=== PATIENT | female | born 1940 | race Caucasian/White ===

== ENCOUNTER → 2020-03-09 | Outpatient (CLI) | payer MEDICARE | END | disposition home or self-care (01) | LOC: RAD 09:45 | PROVIDERS: ATTEND Chiropractor | DX: M47.817 Spondylosis without myelopathy or radiculopathy, lumbosacral region (principal); M85.88 Other specified disorders of bone density and structure, other site; M16.7 Other unilateral secondary osteoarthritis of hip; M25.751 Osteophyte, right hip; M43.17 Spondylolisthesis, lumbosacral region ==

== ENCOUNTER → 2020-06-25 | Outpatient (CLI) | payer MEDICARE | END | disposition home or self-care (01) | LOC: COVID19 11:21 | PROVIDERS: ATTEND Student in an Organized Health Care Education/Training Program | DX: Z20.822 Contact with and (suspected) exposure to COVID-19 (principal) ==

== ENCOUNTER → 2021-01-11 | Outpatient (CLI) | payer MEDICARE | END | disposition home or self-care (01) | LOC: RAD 12:12 | PROVIDERS: ATTEND Chiropractor | DX: M51.36 Other intervertebral disc degeneration, lumbar region (principal); M47.816 Spondylosis without myelopathy or radiculopathy, lumbar region; M48.061 Spinal stenosis, lumbar region without neurogenic claudication ==

== ENCOUNTER 2022-07-11 14:06 | Inpatient (IN) | payer MEDICARE ==
[~2022-07-11] VITALS: Ht 154.9 cm; Wt 68.2 kg
[2022-07-11 14:09] VITALS: BP 141/103
[2022-07-11 14:57] LABS: HEMATOCRIT 35.1 % (37.0-47.0); MEAN CELL VOLUME 81.8 fl (81.0-99.0); MEAN CORPUSCULAR HGB 24.9 pg (27.0-31.0); MEAN CORPUSCULAR HGB CONC 30.5 g/dl (33.0-37.0); MEAN PLATELET VOLUME 8.6 fl (9.6-12.3); NUCLEATED RED BLOOD CELL 0.1 % (0.0-0.0); PLATELET COUNT AUTOMATED 331 10*3/uL (130-400); RED BLOOD COUNT 4.29 10*6/uL (4.10-5.10); RED CELL DISTRI WIDTH 15.3 % (0-14.5); WHITE BLOOD COUNT 31.9 10*3/uL (4.8-10.8)
[2022-07-11 15:04] LABS: MANUAL DIFF REFLEX YES
[2022-07-11 15:09] LABS: ACT PARTIAL THROMBO TIME 25.8 SECONDS (20.0-32.1); INTERNATIONAL NORM RATIO 1.1 (2.0-3.5)
[2022-07-11 15:12] LABS: POTASSIUM 4.8 mmol/L (3.4-5.1)
[2022-07-11 15:44] LABS: BILIRUBIN Negative (Negative); BLOOD 2+ (Negative); CLARITY Turbid (Clear); COLOR Dark Yellow (Yellow); GLUCOSE Negative (Negative); KETONE Trace (Negative); LEUKO ESTERASE 3+ (Negative); NITRITE Negative (Negative); PH 5.5 (4.5-8.0)
[2022-07-11 15:54] LABS: TOTAL CELLS COUNTED 100 #CELLS
[2022-07-11 15:55] LABS: PLATELET SUFFICIENCY NORMAL (NORMAL); TOXIC GRANULATION SLIGHT
[2022-07-11 15:56] VITALS: BP 134/93
[2022-07-11 15:56] LABS: POLYCHROMASIA SLIGHT
[2022-07-11 15:57] LABS: BURR CELLS FEW
[2022-07-11 15:59] LABS: BACTERIA 2+; MUCOUS 1+; RBC 21-30 rbc/hpf (0-2); WBC TNTC wbc/hpf (0-5)
[2022-07-11 17:18] VITALS: BP 140/87
[2022-07-11] MEDS ORDERED: REMERON15 M2 PO (17:47)
[2022-07-11] MEDS ORDERED: OXYCODONE HCL5 MG PO (17:48)
[2022-07-11] MEDS ORDERED: TYLENOL325 M2 PO (17:48)
[2022-07-11] MEDS ORDERED: VALIUM2 MG PO (17:50)
[2022-07-11] MEDS ORDERED: LIDODERM1 EACH T (17:52)
[2022-07-11] MEDS ORDERED: IBU800 MG PO (17:53)
[2022-07-11] MEDS ORDERED: PROMETHAZINE25 MG R (17:54)
[2022-07-11] MEDS ORDERED: LOPERAMIDE HCL2 MG PO (17:55)
[2022-07-11] MEDS ORDERED: ONDANSETRON ODT8 MG PO (17:56)
[2022-07-11] MEDS ORDERED: MELATONIN5 M1 SL (17:57)
[2022-07-11] MEDS ORDERED: PROTONIX40 MG PO (17:57)
[2022-07-11] MEDS ORDERED: ACIDOPHILUS1 EAC5 PO (17:59)
[2022-07-11 18:00] VITALS: BP 102/63
[2022-07-11] MEDS ORDERED: DEXAMETHASONE2 MG PO (18:00)
[2022-07-11] MEDS ORDERED: CLARITIN10 MG PO (18:00)
[2022-07-11] MEDS ORDERED: ZANTAC-360 (FAM20 MG PO (18:01)
[2022-07-11] MEDS ORDERED: MELATONIN5 M6 PO (18:38)
[2022-07-11] MEDS ORDERED: ACIDOPHILUS-PE1 EAC3 PO (18:39)
[2022-07-12] VITALS: BP 150/79
[2022-07-12 06:20] LABS: MEAN CELL VOLUME 81.9 fl (81.0-99.0); MEAN CORPUSCULAR HGB 25.3 pg (27.0-31.0); MEAN CORPUSCULAR HGB CONC 30.9 g/dl (33.0-37.0); MEAN PLATELET VOLUME 9.2 fl (9.6-12.3); PLATELET COUNT AUTOMATED 316 10*3/uL (130-400); RED BLOOD COUNT 4.03 10*6/uL (4.10-5.10); RED CELL DISTRI WIDTH 15.5 % (0-14.5)
[2022-07-12 06:22] LABS: MANUAL DIFF REFLEX YES
[2022-07-12 06:34] LABS: ALKALINE PHOSPHATASE 193 U/L (46-116); BUN 34 mg/dl (9-23); CHLORIDE 101 mmol/L (98-107); POTASSIUM 4.1 mmol/L (3.4-5.1); SGPT/ALT 20 U/L (10-49); TOTAL PROTEIN 5.7 gm/dL (6.0-8.0)
[2022-07-12 06:49] LABS: BURR CELLS FEW; PLATELET SUFFICIENCY NORMAL (NORMAL); POLYCHROMASIA SLIGHT; TOTAL CELLS COUNTED 100 #CELLS; TOXIC GRANULATION SLIGHT
[2022-07-12 06:50] LABS: OVALOCYTES FEW; TARGET CELLS FEW
[2022-07-12 08:00] VITALS: BP 140/70
[2022-07-12 12:00] VITALS: BP 119/66
[2022-07-12 16:00] VITALS: BP 130/74
[2022-07-12 20:00] VITALS: BP 153/78
[2022-07-13] VITALS: BP 154/77
[2022-07-13 05:30] LABS: BUN 42 mg/dl (9-23); CHLORIDE 102 mmol/L (98-107); POTASSIUM 4.2 mmol/L (3.4-5.1)
[2022-07-13 06:27] LABS: HEMATOCRIT 29.1 % (37.0-47.0); MANUAL DIFF REFLEX YES; MEAN CELL VOLUME 81.5 fl (81.0-99.0); MEAN CORPUSCULAR HGB 25.2 pg (27.0-31.0); MEAN CORPUSCULAR HGB CONC 30.9 g/dl (33.0-37.0); MEAN PLATELET VOLUME 9.3 fl (9.6-12.3); PLATELET COUNT AUTOMATED 342 10*3/uL (130-400); RED BLOOD COUNT 3.57 10*6/uL (4.10-5.10); RED CELL DISTRI WIDTH 15.6 % (0-14.5); WHITE BLOOD COUNT 18.3 10*3/uL (4.8-10.8)
[2022-07-13 07:39] LABS: PLATELET SUFFICIENCY NORMAL (NORMAL); TOTAL CELLS COUNTED 100 #CELLS
[2022-07-13 07:40] LABS: BURR CELLS MODERATE
[2022-07-13 08:00] VITALS: BP 160/80
[2022-07-13 11:54] VITALS: BP 145/74
[2022-07-13 16:00] VITALS: BP 182/102
[2022-07-13 18:10] VITALS: BP 154/90
[2022-07-13 20:00] VITALS: BP 146/89
[2022-07-14] VITALS: BP 171/86
[2022-07-14 01:00] VITALS: BP 164/80
[2022-07-14 08:00] VITALS: BP 125/88
[2022-07-14 11:35] LABS: HEMATOCRIT 29.9 % (37.0-47.0); MEAN CORPUSCULAR HGB 24.7 pg (27.0-31.0); MEAN CORPUSCULAR HGB CONC 30.4 g/dl (33.0-37.0); MEAN PLATELET VOLUME 9.4 fl (9.6-12.3); NUCLEATED RED BLOOD CELL 0.1 % (0.0-0.0); PLATELET COUNT AUTOMATED 357 10*3/uL (130-400); RED BLOOD COUNT 3.69 10*6/uL (4.10-5.10); RED CELL DISTRI WIDTH 15.9 % (0-14.5); WHITE BLOOD COUNT 18.2 10*3/uL (4.8-10.8)
[2022-07-14 11:36] LABS: MANUAL DIFF REFLEX YES
[2022-07-14 12:00] VITALS: BP 155/78
[2022-07-14 12:07] LABS: PLATELET SUFFICIENCY NORMAL (NORMAL); TOTAL CELLS COUNTED 100 #CELLS; TOXIC GRANULATION MODERATE
[2022-07-14 12:08] LABS: ACANTHOCYTES FEW; BURR CELLS MODERATE; POLYCHROMASIA SLIGHT
[2022-07-14 12:09] LABS: OVALOCYTES FEW; SCHISTOCYTES FEW
[2022-07-14 13:13] LABS: BUN 38 mg/dl (9-23); CHLORIDE 104 mmol/L (98-107); POTASSIUM 3.8 mmol/L (3.4-5.1)
[2022-07-14 16:00] VITALS: BP 154/87
[2022-07-14 20:00] VITALS: BP 155/85
[2022-07-15] VITALS: BP 154/85
[2022-07-15 07:01] LABS: HEMATOCRIT 31.3 % (37.0-47.0); MEAN CELL VOLUME 80.7 fl (81.0-99.0); MEAN CORPUSCULAR HGB 25.3 pg (27.0-31.0); MEAN CORPUSCULAR HGB CONC 31.3 g/dl (33.0-37.0); PLATELET COUNT AUTOMATED 353 10*3/uL (130-400); RED BLOOD COUNT 3.88 10*6/uL (4.10-5.10); RED CELL DISTRI WIDTH 16.3 % (0-14.5)
[2022-07-15 07:13] LABS: MANUAL DIFF REFLEX YES
[2022-07-15 07:30] LABS: MICROCYTOSIS SLIGHT; TOTAL CELLS COUNTED 100 #CELLS; TOXIC GRANULATION SLIGHT
[2022-07-15 07:31] LABS: BURR CELLS FEW; PLATELET SUFFICIENCY NORMAL (NORMAL); POLYCHROMASIA SLIGHT; SCHISTOCYTES FEW
[2022-07-15 08:00] VITALS: BP 154/89
[2022-07-15 09:26] LABS: BUN 39 mg/dl (9-23); CHLORIDE 104 mmol/L (98-107); POTASSIUM 4.1 mmol/L (3.4-5.1)
[2022-07-15 12:00] VITALS: BP 158/93
[2022-07-15 16:00] VITALS: BP 140/93
[2022-07-15 20:00] VITALS: BP 170/103
[2022-07-16] VITALS: BP 150/84
[2022-07-16 06:27] LABS: BUN 36 mg/dl (9-23); CHLORIDE 106 mmol/L (98-107); POTASSIUM 4.1 mmol/L (3.4-5.1)
[2022-07-16 06:42] LABS: HEMATOCRIT 32.5 % (37.0-47.0); MEAN CELL VOLUME 80.4 fl (81.0-99.0); MEAN CORPUSCULAR HGB 24.5 pg (27.0-31.0); MEAN CORPUSCULAR HGB CONC 30.5 g/dl (33.0-37.0); MEAN PLATELET VOLUME 9.4 fl (9.6-12.3); PLATELET COUNT AUTOMATED 355 10*3/uL (130-400); RED BLOOD COUNT 4.04 10*6/uL (4.10-5.10); RED CELL DISTRI WIDTH 16.3 % (0-14.5); WHITE BLOOD COUNT 17.8 10*3/uL (4.8-10.8)
[2022-07-16 07:12] LABS: MANUAL DIFF REFLEX YES
[2022-07-16 07:57] LABS: POLYCHROMASIA SLIGHT; TARGET CELLS FEW; TOTAL CELLS COUNTED 100 #CELLS
[2022-07-16 07:58] LABS: BURR CELLS FEW; MICROCYTOSIS SLIGHT; PLATELET SUFFICIENCY NORMAL (NORMAL); ROULEAUX SLIGHT; TOXIC GRANULATION SLIGHT
[2022-07-16 08:00] VITALS: BP 152/98
[2022-07-16 12:00] VITALS: BP 127/76
[2022-07-16 16:00] VITALS: BP 156/84
[2022-07-16 20:00] VITALS: BP 142/92
[2022-07-17] VITALS (8 sets, daily range): BP systolic 103–145; BP diastolic 63–84
[2022-07-17 06:28] LABS: ALKALINE PHOSPHATASE 154 U/L (46-116); BUN 32 mg/dl (9-23); CHLORIDE 107 mmol/L (98-107); POTASSIUM 4.4 mmol/L (3.4-5.1); SGPT/ALT 15 U/L (10-49); TOTAL PROTEIN 5.3 gm/dL (6.0-8.0)
[2022-07-17 06:33] LABS: HEMATOCRIT 31.7 % (37.0-47.0); MEAN CELL VOLUME 77.7 fl (81.0-99.0); MEAN CORPUSCULAR HGB CONC 32.2 g/dl (33.0-37.0); MEAN PLATELET VOLUME 9.6 fl (9.6-12.3); PLATELET COUNT AUTOMATED 330 10*3/uL (130-400); RED BLOOD COUNT 4.08 10*6/uL (4.10-5.10); RED CELL DISTRI WIDTH 16.3 % (0-14.5); WHITE BLOOD COUNT 20.9 10*3/uL (4.8-10.8)
[2022-07-17 06:56] LABS: MANUAL DIFF REFLEX YES
[2022-07-17 07:58] LABS: BURR CELLS FEW; MICROCYTOSIS SLIGHT; OVALOCYTES FEW; PLATELET SUFFICIENCY NORMAL (NORMAL); POLYCHROMASIA SLIGHT; TARGET CELLS FEW; TOTAL CELLS COUNTED 100 #CELLS; TOXIC GRANULATION SLIGHT
[2022-07-18 06:51] LABS: RETICULOCYTE % 1.04 % (0.50-2.50)
[2022-07-18 06:56] LABS: HEMATOCRIT 31.5 % (37.0-47.0); MEAN CORPUSCULAR HGB 25.3 pg (27.0-31.0); MEAN CORPUSCULAR HGB CONC 31.1 g/dl (33.0-37.0); MEAN PLATELET VOLUME 9.4 fl (9.6-12.3); PLATELET COUNT AUTOMATED 274 10*3/uL (130-400); RED BLOOD COUNT 3.88 10*6/uL (4.10-5.10); RED CELL DISTRI WIDTH 16.6 % (0-14.5); WHITE BLOOD COUNT 18.4 10*3/uL (4.8-10.8)
[2022-07-18 06:57] LABS: MANUAL DIFF REFLEX YES
[2022-07-18 06:58] LABS: MEAN CELL VOLUME 81.2 fl (81.0-99.0)
[2022-07-18 07:24] LABS: BURR CELLS FEW; OVALOCYTES FEW; PLATELET SUFFICIENCY NORMAL (NORMAL); POLYCHROMASIA SLIGHT; TARGET CELLS FEW; TOTAL CELLS COUNTED 100 #CELLS; TOXIC GRANULATION SLIGHT
[2022-07-18 07:25] LABS: MICROCYTOSIS SLIGHT
[2022-07-18 08:00] VITALS: BP 145/84
[2022-07-18 08:20] LABS: ALKALINE PHOSPHATASE 148 U/L (46-116); BUN 37 mg/dl (9-23); CHLORIDE 108 mmol/L (98-107); SGPT/ALT 13 U/L (10-49); TOTAL PROTEIN 5.1 gm/dL (6.0-8.0)
[2022-07-18 12:00] VITALS: BP 111/69
[2022-07-18 16:00] VITALS: BP 132/86
[2022-07-18 20:00] VITALS: BP 125/72
[2022-07-19] VITALS: BP 140/65
[2022-07-19 06:03] LABS: ALKALINE PHOSPHATASE 143 U/L (46-116); BUN 33 mg/dl (9-23); CHLORIDE 105 mmol/L (98-107); HEMATOCRIT 30.9 % (37.0-47.0); MEAN CELL VOLUME 82.4 fl (81.0-99.0); MEAN CORPUSCULAR HGB 25.3 pg (27.0-31.0); MEAN CORPUSCULAR HGB CONC 30.7 g/dl (33.0-37.0); MEAN PLATELET VOLUME 9.9 fl (9.6-12.3); PLATELET COUNT AUTOMATED 241 10*3/uL (130-400); RED BLOOD COUNT 3.75 10*6/uL (4.10-5.10); RED CELL DISTRI WIDTH 16.7 % (0-14.5); SGPT/ALT 15 U/L (10-49); WHITE BLOOD COUNT 17.8 10*3/uL (4.8-10.8)
[2022-07-19 06:07] LABS: MANUAL DIFF REFLEX YES
[2022-07-19 06:35] LABS: PLATELET SUFFICIENCY NORMAL (NORMAL); TARGET CELLS FEW; TOTAL CELLS COUNTED 100 #CELLS
[2022-07-19 08:00] VITALS: BP 147/76
[2022-07-19 12:00] VITALS: BP 131/81
[2022-07-19] MEDS ORDERED: VANCO 1 GR1 GM/250 M IV (12:13)
[2022-07-19 16:00] VITALS: BP 109/58
== END 2022-07-19 18:43 | DRG 871 ==
LOC: ED 14:06 → EDHOLD 16:36 → 4E 16:36
PROVIDERS: Family Medicine; Internal Medicine; Registered Nurse; ADMIT Internal Medicine; ATTEND Internal Medicine
PROC: XW033E5 Introduction of Remdesivir Anti-infective into Peripheral Vein, Percutaneous Approach, New Technology Group 5 (ICD-10-PCS; 2022-07-11)
PROC: BD15YZZ Fluoroscopy of Upper GI using Other Contrast (ICD-10-PCS; 2022-07-12)
PROC: B24BZZ4 Ultrasonography of Heart with Aorta, Transesophageal (ICD-10-PCS; principal; 2022-07-17)
PROC: BD15YZZ Fluoroscopy of Upper GI using Other Contrast (ICD-10-PCS; 2022-07-18)
DX: A41.02 Sepsis due to Methicillin resistant Staphylococcus aureus (principal); E43 Unspecified severe protein-calorie malnutrition; N17.0 Acute kidney failure with tubular necrosis; U07.1 COVID-19; J96.01 Acute respiratory failure with hypoxia; G93.41 Metabolic encephalopathy; N39.0 Urinary tract infection, site not specified; R65.20 Severe sepsis without septic shock; D64.9 Anemia, unspecified; Z66 Do not resuscitate; R31.9 Hematuria, unspecified; R73.9 Hyperglycemia, unspecified; E83.42 Hypomagnesemia; Z88.2 Allergy status to sulfonamides; Z88.8 Allergy status to other drugs, medicaments and biological substances; Z51.5 Encounter for palliative care; Z86.16 Personal history of COVID-19; Z68.29 Body mass index [BMI] 29.0-29.9, adult